=== PATIENT | female | born 1985 | race Caucasian/White ===

== ENCOUNTER 2018-10-04 10:09 | Outpatient (CLI) | payer OTHER ==
--- NOTE | 2018-10-04 10:33 | ULT ---
BILATERAL RENAL ULTRASOUND: HISTORY: Recurrent UTIs. FINDINGS: The right kidney measures 10.5 cm in length and the left kidney measures 10.6 cm in length. Cortical echogenicity and thickness is normal. No focal mass or hydronephrosis is seen on either side. No shadowing calculi are noted. The urinary bladder is unremarkable. The ureteral jets are seen bilatera lly into the bladder. IMPRESSION: Normal exam.
== END 2018-10-04 10:10 | disposition home or self-care (01) ==
LOC: BICULT 10:09
PROVIDERS: ATTEND Urology
DX: N39.46 Mixed incontinence (principal); Z87.440 Personal history of urinary (tract) infections
CPT/HCPCS: 76770